=== PATIENT | male | born 1950 | race Caucasian/White ===

== ENCOUNTER 2018-01-24 11:14 | Inpatient (IN) | payer OTHER ==
[2018-01-24 12:40] LABS: ADD MAN DIFF? NO
[2018-01-24 12:45] LABS: WHITE BLOOD COUNT 8.6 10^3/ul (4.8-10.8)
[2018-01-24 12:45] LABS: BASOPHILS % 0.2 % (0.0-2.0); EOSINOPHILS # 0.3 10^3/ul (0.0-0.5); EOSINOPHILS % 3.8 % (0.0-7.0); HEMATOCRIT 28.4 % (42.0-52.0); HEMOGLOBIN 9.2 g/dl (14.0-18.0); LYMPHOCYTES % 11.1 % (15.0-51.0); MEAN CORPUSCULAR HEMOGLOBIN 30.2 pg (29.0-33.0); MEAN CORPUSCULAR HGB CONC 32.4 g/dl (32.0-37.0); MEAN CORPUSCULAR VOLUME 93.1 fl (82.0-101.0); MEAN PLATELET VOLUME 9.6 fl (7.4-10.4); MONOCYTE # 0.5 10^3/ul (0.3-0.9); MONOCYTES % 6.3 % (0.0-11.0); NEUTROPHIL # 6.7 10^3/ul (1.6-7.5); NEUTROPHILS % 77.8 % (39.0-77.0); PLATELET COUNT 431 10^3/UL (140-415); RED BLOOD COUNT 3.05 10^6/ul (4.70-6.10); RED CELL DISTRIBUTION WIDTH 12.1 % (11.5-14.5)
[2018-01-24 12:54] LABS: ADD UMIC YES; UR ASCORBIC ACID NEGATIVE (NEGATIVE); UR BILIRUBIN (Dip) NEGATIVE (NEGATIVE); UR BLOOD (Dip) 1+ mg/dL (NEGATIVE); UR CLARITY CLOUDY (CLEAR); UR COLOR YELLOW (YELLOW); UR GLUCOSE (Dip) 2+ mg/dL (NEGATIVE); UR KETONES (Dip) NEGATIVE (NEGATIVE); UR LEUKOCYTE ESTERASE (Dip) 3+ Leu/ul (NEGATIVE); UR NITRITE (Dip) NEGATIVE (NEGATIVE); UR RBC 29 /HPF (0-5); UR SPECIFIC GRAVITY (Dip) 1.014 (1.003-1.030); UR TOTAL PROTEIN (Dip) 3+ mg/dl (NEGATIVE); UR UROBILINOGEN (Dip) NEGATIVE (NEGATIVE); UR WBC > 182 /HPF (0-5)
[2018-01-24 13:03] LABS: ALANINE AMINOTRANSFERASE 18 IU/L (13-69); ALBUMIN 3.5 g/dl (3.3-4.9); ALBUMIN/GLOBULIN RATIO 0.79; ALKALINE PHOSPHATASE 245 IU/L (42-121); ANION GAP 14 (5-13); ASPARTATE AMINO TRANSFERASE 19 IU/L (15-46); BLOOD UREA NITROGEN 68 mg/dl (7-20); CALCIUM 8.9 mg/dl (8.4-10.2); CARBON DIOXIDE 16 mmol/L (21-31); CHLORIDE 109 mmol/L (97-110); CREATININE 6.01 mg/dl (0.61-1.24); Estimated GFR 9 mL/min (>60); GLUCOSE 125 mg/dl (70-220); LIPASE 706 U/L (23-300); POTASSIUM 5.3 mmol/L (3.5-5.1); SODIUM 139 mmol/L (135-144); TOTAL PROTEIN 7.9 g/dl (6.1-8.1)
[2018-01-24] MEDS ORDERED: NACL 0.9% 3 ML SYG IV (16:30)
[2018-01-24] MEDS ORDERED: VANCOMYCIN IV PER PHARMACY XX (16:30)
[2018-01-24] MEDS ORDERED: ALBUTEROL/IPRATROPIUM (NEB) 3 ML AMP HHN (17:00)
[2018-01-24] MEDS: HYDROCODONE/APAP (5/325) TAB PO (17:08)
[2018-01-24] MEDS: SOD CHLORIDE 0.9% 1,000 ML IV (18:59)
[2018-01-24] MEDS: AMLODIPINE 10 MG TAB PO (19:00)
[2018-01-24] MEDS: LABETALOL HCL 20MG INJ IV (19:00)
[2018-01-24] MEDS: ALBUTEROL/IPRATROPIUM (NEB) 3 ML AMP HHN (20:00)
[2018-01-24 20:42] LABS: CREATINE KINASE 39 IU/L (23-200)
[2018-01-24] MEDS: NA BICARBONATE 650 MG TAB PO (21:17)
[2018-01-24] MEDS: NA POLYST SULFON 15 GM/60 ML BTL PO (21:20)
[2018-01-24 21:45] LABS: SODIUM,URINE RANDOM 67 mmol/L (30-90)
[2018-01-24] MEDS: PIPER-TAZO 2.25 GM (PMX) 50 ML IVPB (22:16)
[2018-01-25] MEDS: PANTOPRAZOLE 40 MG INJ IV (05:05)
[2018-01-25] MEDS: SOD CHLORIDE 0.9% 1,000 ML IV (05:06)
[2018-01-25] MEDS: PIPER-TAZO 2.25 GM (PMX) 50 ML IVPB ×3 (05:07→21:38)
[2018-01-25 05:45] LABS: ADD MAN DIFF? NO
[2018-01-25 05:51] LABS: WHITE BLOOD COUNT 6.7 10^3/ul (4.8-10.8)
[2018-01-25 05:51] LABS: BASOPHILS % 0.3 % (0.0-2.0); EOSINOPHILS # 0.2 10^3/ul (0.0-0.5); EOSINOPHILS % 2.8 % (0.0-7.0); HEMATOCRIT 25.6 % (42.0-52.0); HEMOGLOBIN 8.4 g/dl (14.0-18.0); LYMPHOCYTES # 0.8 10^3/ul (0.8-2.9); MEAN CORPUSCULAR HEMOGLOBIN 30.9 pg (29.0-33.0); MEAN CORPUSCULAR HGB CONC 32.8 g/dl (32.0-37.0); MEAN CORPUSCULAR VOLUME 94.1 fl (82.0-101.0); MEAN PLATELET VOLUME 9.4 fl (7.4-10.4); MONOCYTE # 0.5 10^3/ul (0.3-0.9); MONOCYTES % 7.5 % (0.0-11.0); NEUTROPHIL # 5.1 10^3/ul (1.6-7.5); NEUTROPHILS % 76.7 % (39.0-77.0); PLATELET COUNT 387 10^3/UL (140-415); RED BLOOD COUNT 2.72 10^6/ul (4.70-6.10); RED CELL DISTRIBUTION WIDTH 12.5 % (11.5-14.5)
[2018-01-25 06:09] LABS: LIPASE 915 U/L (23-300)
[2018-01-25 06:27] LABS: ALANINE AMINOTRANSFERASE 25 IU/L (13-69); ALBUMIN 3.1 g/dl (3.3-4.9); ALBUMIN/GLOBULIN RATIO 0.81; ALKALINE PHOSPHATASE 208 IU/L (42-121); ANION GAP 12 (5-13); ASPARTATE AMINO TRANSFERASE 29 IU/L (15-46); BILIRUBIN,INDIRECT 0.1 mg/dl (0-1.1); BILIRUBIN,TOTAL 0.1 mg/dl (0.2-1.3); BLOOD UREA NITROGEN 66 mg/dl (7-20); CALCIUM 8.2 mg/dl (8.4-10.2); CARBON DIOXIDE 16 mmol/L (21-31); CHLORIDE 116 mmol/L (97-110); CREATININE 5.96 mg/dl (0.61-1.24); Estimated GFR 9 mL/min (>60); GLUCOSE 137 mg/dl (70-220); POTASSIUM 5.5 mmol/L (3.5-5.1); SODIUM 144 mmol/L (135-144); TOTAL PROTEIN 6.9 g/dl (6.1-8.1)
[2018-01-25 07:26] LABS: HEMOGLOBIN A1C 5.7 % (0-5.9)
[2018-01-25] MEDS: ALBUTEROL/IPRATROPIUM (NEB) 3 ML AMP HHN ×3 (08:00→20:00)
[2018-01-25] MEDS: NA BICARBONATE 650 MG TAB PO ×3 (09:24→21:36)
[2018-01-25] MEDS: SODIUM BICARBONATE (IV ADD) 100 MEQ in DEXTROSE 5% 1,000 ML IV (13:32)
[2018-01-25] MEDS: NA POLYST SULFON 15 GM/60 ML BTL PO ×2 (14:57→16:21)
[2018-01-26] MEDS: PANTOPRAZOLE 40 MG INJ IV (06:38)
[2018-01-26] MEDS: PIPER-TAZO 2.25 GM (PMX) 50 ML IVPB ×3 (06:38→22:45)
[2018-01-26 06:41] LABS: ADD MAN DIFF? NO
[2018-01-26 06:44] LABS: BASOPHILS % 0.5 % (0.0-2.0); EOSINOPHILS # 0.3 10^3/ul (0.0-0.5); EOSINOPHILS % 5.1 % (0.0-7.0); HEMATOCRIT 22.3 % (42.0-52.0); HEMOGLOBIN 7.1 g/dl (14.0-18.0); LYMPHOCYTES # 0.9 10^3/ul (0.8-2.9); LYMPHOCYTES % 13.5 % (15.0-51.0); MEAN CORPUSCULAR HGB CONC 31.8 g/dl (32.0-37.0); MEAN CORPUSCULAR VOLUME 94.1 fl (82.0-101.0); MEAN PLATELET VOLUME 9.9 fl (7.4-10.4); MONOCYTE # 0.7 10^3/ul (0.3-0.9); MONOCYTES % 9.8 % (0.0-11.0); NEUTROPHIL # 4.7 10^3/ul (1.6-7.5); NEUTROPHILS % 70.3 % (39.0-77.0); PLATELET COUNT 338 10^3/UL (140-415); RED BLOOD COUNT 2.37 10^6/ul (4.70-6.10); RED CELL DISTRIBUTION WIDTH 12.4 % (11.5-14.5)
[2018-01-26 06:44] LABS: WHITE BLOOD COUNT 6.6 10^3/ul (4.8-10.8)
[2018-01-26 07:12] LABS: ANION GAP 10 (5-13); BLOOD UREA NITROGEN 56 mg/dl (7-20); CALCIUM 8.2 mg/dl (8.4-10.2); CARBON DIOXIDE 18 mmol/L (21-31); CHLORIDE 116 mmol/L (97-110); Estimated GFR 10 mL/min (>60); GLUCOSE 137 mg/dl (70-220); MAGNESIUM 1.8 mg/dl (1.7-2.5); PHOSPHORUS 5.5 mg/dl (2.5-4.9); POTASSIUM 4.6 mmol/L (3.5-5.1); SODIUM 144 mmol/L (135-144)
[2018-01-26] MEDS: ALBUTEROL/IPRATROPIUM (NEB) 3 ML AMP HHN ×3 (08:00→19:59)
[2018-01-26] MEDS: SOD CHLORIDE 0.45% 1,000 ML IV (08:10)
[2018-01-26] MEDS: NA BICARBONATE 650 MG TAB PO ×3 (08:10→20:37)
[2018-01-26 10:55] LABS: RETICULOCYTE COUNT # 0.047 X10^6 (0.020-0.110)
[2018-01-26 10:55] LABS: RETICULOCYTE RBC 2.36
[2018-01-26 11:11] LABS: IRON 43 ug/dl (35-150)
[2018-01-26 11:12] LABS: HEMATOCRIT 21.5 % (42.0-52.0)
[2018-01-26 11:20] LABS: % IRON SATURATION 21 % SAT (22-52); TOTAL IRON BINDING CAPACITY 207 ug/dl (241-421)
[2018-01-26 11:23] LABS: HEMOGLOBIN 6.9 g/dl (14.0-18.0)
[2018-01-26 14:19] LABS: INR 1.22; PROTIME 15.6 Sec (11.9-14.9); PT RATIO 1.2
[2018-01-26 14:20] LABS: PARTIAL THROMBOPLASTIN TIME 38.3 Sec (23.0-35.0)
[2018-01-26 14:44] LABS: CREATINE KINASE 32 IU/L (23-200)
[2018-01-26] MEDS: EPOETIN 3000 UNITS/1 ML INJ (ESRD) SC (17:31)
[2018-01-26 19:46] LABS: IMMEDIATE SPIN CROSSMATCH 1 2
[2018-01-26 20:29] LABS: INR 1.22; PROTIME 15.6 Sec (11.9-14.9); PT RATIO 1.2
[2018-01-26 20:30] LABS: PARTIAL THROMBOPLASTIN TIME 38.6 Sec (23.0-35.0)
[2018-01-26] MEDS: LABETALOL HCL 20MG INJ IV (20:37)
[2018-01-27] MEDS: SOD CHLORIDE 0.45% 1,000 ML IV ×2 (00:10→16:46)
[2018-01-27] MEDS: PANTOPRAZOLE 40 MG INJ IV (05:44)
[2018-01-27] MEDS: PIPER-TAZO 2.25 GM (PMX) 50 ML IVPB ×3 (05:46→21:32)
[2018-01-27] MEDS: LABETALOL HCL 20MG INJ IV ×3 (05:53→19:55)
[2018-01-27 06:19] LABS: ADD MAN DIFF? NO
[2018-01-27 06:24] LABS: WHITE BLOOD COUNT 8.1 10^3/ul (4.8-10.8)
[2018-01-27 06:24] LABS: BASOPHILS % 0.2 % (0.0-2.0); EOSINOPHILS # 0.2 10^3/ul (0.0-0.5); HEMATOCRIT 28.3 % (42.0-52.0); HEMOGLOBIN 9.4 g/dl (14.0-18.0); LYMPHOCYTES # 1.1 10^3/ul (0.8-2.9); LYMPHOCYTES % 13.7 % (15.0-51.0); MEAN CORPUSCULAR HEMOGLOBIN 30.3 pg (29.0-33.0); MEAN CORPUSCULAR HGB CONC 33.2 g/dl (32.0-37.0); MEAN CORPUSCULAR VOLUME 91.3 fl (82.0-101.0); MEAN PLATELET VOLUME 9.9 fl (7.4-10.4); MONOCYTE # 0.6 10^3/ul (0.3-0.9); MONOCYTES % 7.8 % (0.0-11.0); NEUTROPHILS % 74.8 % (39.0-77.0); PLATELET COUNT 294 10^3/UL (140-415); RED CELL DISTRIBUTION WIDTH 13.3 % (11.5-14.5)
[2018-01-27 06:42] LABS: INR 1.21; PROTIME 15.5 Sec (11.9-14.9); PT RATIO 1.2
[2018-01-27 06:49] LABS: ANION GAP 12 (5-13); BLOOD UREA NITROGEN 49 mg/dl (7-20); CALCIUM 8.1 mg/dl (8.4-10.2); CARBON DIOXIDE 17 mmol/L (21-31); CHLORIDE 113 mmol/L (97-110); CREATININE 5.32 mg/dl (0.61-1.24); Estimated GFR 11 mL/min (>60); GLUCOSE 104 mg/dl (70-220); MAGNESIUM 1.6 mg/dl (1.7-2.5); PHOSPHORUS 5.9 mg/dl (2.5-4.9); POTASSIUM 4.3 mmol/L (3.5-5.1); SODIUM 142 mmol/L (135-144)
[2018-01-27] MEDS ORDERED: ROCURONIUM 50 MG INJ ×2 (07:00→17:37)
[2018-01-27 07:23] LABS: CARCINOEMBRYONIC ANTIGEN 2.5 ng/ml (0.0-5.0)
[2018-01-27 07:23] LABS: CANCER ANTIGEN 125 23.1 U/ml (0.0-35.0)
[2018-01-27 07:27] LABS: CANCER ANTIGEN 19-9 8.7 U/ml (0.0-37.0)
[2018-01-27 07:37] LABS: PROSTATE SPECIFIC ANTIGEN 1.4 ng/ml (0.0-4.0)
[2018-01-27] MEDS: NA BICARBONATE 650 MG TAB PO ×4 (08:45→21:32)
[2018-01-27] MEDS: ALBUTEROL/IPRATROPIUM (NEB) 3 ML AMP HHN ×3 (09:05→19:36)
[2018-01-27] MEDS: MAGNESIUM SULFATE 1 GM/D5W 100 ML IVPB (10:03)
[2018-01-27] MEDS: LIDOCAINE 1% (MPF) 5 ML VIAL ×2 (11:03)
[2018-01-27 11:21] LABS: OCCULT BLOOD STOOL NEGATIVE (NEGATIVE)
[2018-01-27] MEDS: CALCIUM ACETATE 667 MG CAP PO ×2 (13:37→17:14)
[2018-01-27] MEDS ORDERED: PHENYLephrine (100 MCG/ML) 5ML SYG (17:37)
[2018-01-27] MEDS ORDERED: CEFAZOLIN 1 GM INJ (17:37)
[2018-01-27] MEDS ORDERED: MIDAZOLAM 1 MG/ML 2 ML INJ (17:37)
[2018-01-27] MEDS ORDERED: FENTAnyl 50 MCG/ML VIAL (17:37)
[2018-01-27] MEDS ORDERED: PROPOFOL 20 ML (17:37)
[2018-01-27] MEDS ORDERED: FENTAnyl 50 MCG/ML VIAL IV ×3 (18:00)
[2018-01-27] MEDS ORDERED: ONDANSETRON 4 MG INJ IV (18:00)
[2018-01-27] MEDS ORDERED: DIPHENHYDRAMINE 50 MG INJ IV (18:00)
[2018-01-27] MEDS ORDERED: MEPERIDINE 25 MG INJ IV (18:00)
[2018-01-27] MEDS ORDERED: METOCLOPRAMIDE 10 MG INJ IV (18:00)
[2018-01-27] MEDS ORDERED: EPHEDrine SULFATE 50 MG/5 ML SYG IV (18:00)
[2018-01-27] MEDS ORDERED: HYDROmorphONE 1 MG/5 ML IV SYRINGE IV ×3 (18:00)
[2018-01-27] MEDS: IOHEXOL 300MG/ML 30 ML BTL (18:34)
[2018-01-27 18:58] LABS: ADD UMIC YES; UR ASCORBIC ACID NEGATIVE (NEGATIVE); UR BACTERIA FEW /HPF (NONE SEEN); UR BILIRUBIN (Dip) NEGATIVE (NEGATIVE); UR BLOOD (Dip) 2+ mg/dL (NEGATIVE); UR CLARITY CLEAR (CLEAR); UR COLOR COLORLESS (YELLOW); UR GLUCOSE (Dip) NEGATIVE (NEGATIVE); UR KETONES (Dip) NEGATIVE (NEGATIVE); UR LEUKOCYTE ESTERASE (Dip) 2+ Leu/ul (NEGATIVE); UR NITRITE (Dip) NEGATIVE (NEGATIVE); UR RBC 33 /HPF (0-5); UR SPECIFIC GRAVITY (Dip) 1.004 (1.003-1.030); UR TOTAL PROTEIN (Dip) NEGATIVE (NEGATIVE); UR UROBILINOGEN (Dip) NEGATIVE (NEGATIVE); UR WBC 74 /HPF (0-5)
[2018-01-27] MEDS ORDERED: DEXAMETHASONE 4 MG/ML 1 ML INJ (19:09)
[2018-01-27] MEDS ORDERED: ONDANSETRON 4 MG INJ (19:09)
[2018-01-27] MEDS ORDERED: METOCLOPRAMIDE 10 MG INJ (19:09)
[2018-01-27] MEDS ORDERED: SUGAMMADEX SODIUM 200 MG/2 ML VIAL IV (19:22)
[2018-01-27] MEDS: hydrALAzine 20 MG INJ IV (20:28)
[2018-01-27] MEDS: HYDROCODONE/APAP (5/325) TAB PO (21:33)
[2018-01-28] MEDS: PIPER-TAZO 2.25 GM (PMX) 50 ML IVPB ×3 (05:21→21:11)
[2018-01-28] MEDS: PANTOPRAZOLE 40 MG INJ IV (05:21)
[2018-01-28 05:31] LABS: ADD MAN DIFF? NO
[2018-01-28 05:34] LABS: WHITE BLOOD COUNT 6.8 10^3/ul (4.8-10.8)
[2018-01-28 05:34] LABS: ABNORMAL IP MESSAGE 1; BASOPHILS % 0.1 % (0.0-2.0); HEMATOCRIT 30.1 % (42.0-52.0); HEMOGLOBIN 9.9 g/dl (14.0-18.0); LYMPHOCYTES # 0.4 10^3/ul (0.8-2.9); LYMPHOCYTES % 5.3 % (15.0-51.0); MEAN CORPUSCULAR HEMOGLOBIN 30.3 pg (29.0-33.0); MEAN CORPUSCULAR HGB CONC 32.9 g/dl (32.0-37.0); MEAN PLATELET VOLUME 9.8 fl (7.4-10.4); MONOCYTE # 0.1 10^3/ul (0.3-0.9); MONOCYTES % 0.9 % (0.0-11.0); NEUTROPHIL # 6.3 10^3/ul (1.6-7.5); NEUTROPHILS % 93.1 % (39.0-77.0); PLATELET COUNT 274 10^3/UL (140-415); POSITIVE DIFF @See below; RED BLOOD COUNT 3.27 10^6/ul (4.70-6.10); RED CELL DISTRIBUTION WIDTH 13.3 % (11.5-14.5)
[2018-01-28 06:26] LABS: ALANINE AMINOTRANSFERASE 11 IU/L (13-69); ALBUMIN 2.8 g/dl (3.3-4.9); ALBUMIN/GLOBULIN RATIO 0.75; ALKALINE PHOSPHATASE 150 IU/L (42-121); ANION GAP 12 (5-13); ASPARTATE AMINO TRANSFERASE 16 IU/L (15-46); BILIRUBIN,INDIRECT 0.2 mg/dl (0-1.1); BILIRUBIN,TOTAL 0.2 mg/dl (0.2-1.3); BLOOD UREA NITROGEN 47 mg/dl (7-20); CALCIUM 8.1 mg/dl (8.4-10.2); CARBON DIOXIDE 16 mmol/L (21-31); CHLORIDE 114 mmol/L (97-110); CREATININE 5.11 mg/dl (0.61-1.24); Estimated GFR 11 mL/min (>60); GLUCOSE 177 mg/dl (70-220); POTASSIUM 4.6 mmol/L (3.5-5.1); SODIUM 142 mmol/L (135-144); TOTAL PROTEIN 6.5 g/dl (6.1-8.1)
[2018-01-28 06:46] LABS: COMPLEMENT C3 83 mg/dl (88-165); COMPLEMENT C4 35 mg/dl (14-44)
[2018-01-28 07:10] LABS: HIV 1&2 ANTIBODY NEGATIVE (NEGATIVE)
[2018-01-28] MEDS: ALBUTEROL/IPRATROPIUM (NEB) 3 ML AMP HHN ×3 (07:52→19:38)
[2018-01-28 08:36] LABS: MAGNESIUM 1.8 mg/dl (1.7-2.5)
[2018-01-28] MEDS: CALCIUM ACETATE 667 MG CAP PO ×3 (09:28→18:35)
[2018-01-28] MEDS: NA BICARBONATE 650 MG TAB PO ×3 (09:28→20:29)
[2018-01-28] MEDS: LABETALOL HCL 20MG INJ IV ×2 (12:01→20:28)
[2018-01-28 15:14] LABS: RAPID PLASMA REAGIN NONREACTIVE (NR)
[2018-01-28] MEDS: SODIUM BICARBONATE (IV ADD) 75 MEQ in DEXTROSE 5% 1,000 ML IV (15:30)
[2018-01-28] MEDS: EPOETIN 3000 UNITS/1 ML INJ (ESRD) SC (21:12)
[2018-01-29 00:22] LABS: CANCER ANTIGEN 15-3 11 U/mL (<32)
[2018-01-29] MEDS: PIPER-TAZO 2.25 GM (PMX) 50 ML IVPB ×3 (05:07→22:39)
[2018-01-29] MEDS: PANTOPRAZOLE 40 MG INJ IV (05:07)
[2018-01-29 06:08] LABS: ADD MAN DIFF? NO
[2018-01-29 06:16] LABS: WHITE BLOOD COUNT 8.7 10^3/ul (4.8-10.8)
[2018-01-29 06:16] LABS: BASOPHILS % 0.2 % (0.0-2.0); EOSINOPHILS # 0.1 10^3/ul (0.0-0.5); EOSINOPHILS % 1.6 % (0.0-7.0); HEMATOCRIT 25.6 % (42.0-52.0); HEMOGLOBIN 8.6 g/dl (14.0-18.0); LYMPHOCYTES # 1.1 10^3/ul (0.8-2.9); LYMPHOCYTES % 12.7 % (15.0-51.0); MEAN CORPUSCULAR HEMOGLOBIN 30.8 pg (29.0-33.0); MEAN CORPUSCULAR HGB CONC 33.6 g/dl (32.0-37.0); MEAN CORPUSCULAR VOLUME 91.8 fl (82.0-101.0); MEAN PLATELET VOLUME 9.9 fl (7.4-10.4); MONOCYTE # 0.7 10^3/ul (0.3-0.9); MONOCYTES % 7.9 % (0.0-11.0); NEUTROPHIL # 6.7 10^3/ul (1.6-7.5); NEUTROPHILS % 77.1 % (39.0-77.0); PLATELET COUNT 238 10^3/UL (140-415); RED BLOOD COUNT 2.79 10^6/ul (4.70-6.10); RED CELL DISTRIBUTION WIDTH 13.2 % (11.5-14.5)
[2018-01-29 07:18] LABS: ANION GAP 11 (5-13); BLOOD UREA NITROGEN 52 mg/dl (7-20); CALCIUM 7.7 mg/dl (8.4-10.2); CARBON DIOXIDE 18 mmol/L (21-31); CHLORIDE 112 mmol/L (97-110); CREATININE 5.36 mg/dl (0.61-1.24); Estimated GFR 11 mL/min (>60); GLUCOSE 141 mg/dl (70-220); MAGNESIUM 1.8 mg/dl (1.7-2.5); PHOSPHORUS 6.2 mg/dl (2.5-4.9); POTASSIUM 3.9 mmol/L (3.5-5.1); SODIUM 141 mmol/L (135-144)
[2018-01-29] MEDS: ALBUTEROL/IPRATROPIUM (NEB) 3 ML AMP HHN ×3 (08:14→20:25)
[2018-01-29] MEDS: CALCIUM ACETATE 667 MG CAP PO ×3 (08:41→17:41)
[2018-01-29] MEDS: NA BICARBONATE 650 MG TAB PO ×3 (08:42→20:22)
[2018-01-29] MEDS: NIFEdipine (XL) 60 MG TAB PO (13:02)
[2018-01-29] MEDS: hydrALAzine 20 MG INJ IV ×2 (13:03→20:23)
[2018-01-29 13:06] LABS: ANA SCREEN NEGATIVE (NEGATIVE)
[2018-01-29 13:57] LABS: ANCA SCREEN NEGATIVE (NEGATIVE)
[2018-01-29 15:26] LABS: MYELOPEROXIDASE ANTIBODY <1.0 AI; PROTEINASE-3 ANTIBODY <1.0 AI
[2018-01-29] MEDS: SODIUM BICARBONATE (IV ADD) 75 MEQ in DEXTROSE 5% 1,000 ML IV (15:30)
[2018-01-29 17:02] LABS: LACTATE DEHYDROGENASE 346 IU/L (313-618)
[2018-01-29] MEDS ORDERED: SOD CHLORIDE 0.45% 1,000 ML IV (17:30)
[2018-01-29 18:54] LABS: IMMUNOGLOBULIN A 493 mg/dl (70-400); IMMUNOGLOBULIN G 1346 mg/dl (700-1600); IMMUNOGLOBULIN M 50 mg/dl (40-230)
[2018-01-29] MEDS: SOD CHLORIDE 0.45% 1,000 ML IV (22:39)
[2018-01-29 22:55] LABS: CREATININE,URINE RANDOM 66.23 mg/dl (20-370)
[2018-01-29 23:01] LABS: PROTEIN/CREAT RATIO 6.35 RATIO
[2018-01-30] MEDS: PANTOPRAZOLE 40 MG INJ IV (05:18)
[2018-01-30] MEDS: PIPER-TAZO 2.25 GM (PMX) 50 ML IVPB ×3 (05:18→20:37)
[2018-01-30 06:19] LABS: ADD MAN DIFF? NO
[2018-01-30 06:30] LABS: WHITE BLOOD COUNT 7.9 10^3/ul (4.8-10.8)
[2018-01-30 06:30] LABS: BASOPHILS % 0.1 % (0.0-2.0); EOSINOPHILS # 0.1 10^3/ul (0.0-0.5); EOSINOPHILS % 1.3 % (0.0-7.0); HEMOGLOBIN 9.2 g/dl (14.0-18.0); LYMPHOCYTES # 0.7 10^3/ul (0.8-2.9); LYMPHOCYTES % 8.3 % (15.0-51.0); MEAN CORPUSCULAR HEMOGLOBIN 30.4 pg (29.0-33.0); MEAN CORPUSCULAR HGB CONC 32.9 g/dl (32.0-37.0); MEAN CORPUSCULAR VOLUME 92.4 fl (82.0-101.0); MEAN PLATELET VOLUME 10.1 fl (7.4-10.4); MONOCYTE # 0.6 10^3/ul (0.3-0.9); MONOCYTES % 7.4 % (0.0-11.0); NEUTROPHIL # 6.5 10^3/ul (1.6-7.5); NEUTROPHILS % 81.8 % (39.0-77.0); PLATELET COUNT 225 10^3/UL (140-415); RED BLOOD COUNT 3.03 10^6/ul (4.70-6.10); RED CELL DISTRIBUTION WIDTH 13.1 % (11.5-14.5)
[2018-01-30 06:50] LABS: ANION GAP 12 (5-13); BLOOD UREA NITROGEN 51 mg/dl (7-20); CALCIUM 8.1 mg/dl (8.4-10.2); CARBON DIOXIDE 20 mmol/L (21-31); CHLORIDE 106 mmol/L (97-110); CREATININE 6.43 mg/dl (0.61-1.24); Estimated GFR 9 mL/min (>60); GLUCOSE 135 mg/dl (70-220); MAGNESIUM 1.7 mg/dl (1.7-2.5); PHOSPHORUS 5.3 mg/dl (2.5-4.9); POTASSIUM 3.9 mmol/L (3.5-5.1); SODIUM 138 mmol/L (135-144)
[2018-01-30] MEDS: ALBUTEROL/IPRATROPIUM (NEB) 3 ML AMP HHN ×3 (07:58→19:31)
[2018-01-30] MEDS: NA BICARBONATE 650 MG TAB PO ×3 (08:58→20:36)
[2018-01-30] MEDS: NIFEdipine (XL) 60 MG TAB PO (08:59)
[2018-01-30] MEDS: CALCIUM ACETATE 667 MG CAP PO ×3 (08:59→17:26)
[2018-01-30] MEDS: SOD CHLORIDE 0.45% 1,000 ML IV (17:26)
[2018-01-30] MEDS: ONDANSETRON 4 MG INJ IV (18:20)
[2018-01-31] MEDS: PANTOPRAZOLE 40 MG INJ IV (05:07)
[2018-01-31] MEDS: PIPER-TAZO 2.25 GM (PMX) 50 ML IVPB ×3 (05:07→21:36)
[2018-01-31 05:39] LABS: ADD MAN DIFF? NO
[2018-01-31 05:46] LABS: WHITE BLOOD COUNT 6.5 10^3/ul (4.8-10.8)
[2018-01-31 05:46] LABS: BASOPHILS % 0.2 % (0.0-2.0); EOSINOPHILS # 0.1 10^3/ul (0.0-0.5); EOSINOPHILS % 0.8 % (0.0-7.0); HEMATOCRIT 27.1 % (42.0-52.0); LYMPHOCYTES # 0.8 10^3/ul (0.8-2.9); LYMPHOCYTES % 12.2 % (15.0-51.0); MEAN CORPUSCULAR HEMOGLOBIN 30.4 pg (29.0-33.0); MEAN CORPUSCULAR HGB CONC 33.2 g/dl (32.0-37.0); MEAN CORPUSCULAR VOLUME 91.6 fl (82.0-101.0); MEAN PLATELET VOLUME 10.2 fl (7.4-10.4); MONOCYTE # 0.5 10^3/ul (0.3-0.9); MONOCYTES % 7.9 % (0.0-11.0); NEUTROPHILS % 77.8 % (39.0-77.0); PLATELET COUNT 189 10^3/UL (140-415); RED BLOOD COUNT 2.96 10^6/ul (4.70-6.10); RED CELL DISTRIBUTION WIDTH 13.1 % (11.5-14.5)
[2018-01-31 06:14] LABS: ANION GAP 13 (5-13); BLOOD UREA NITROGEN 55 mg/dl (7-20); CALCIUM 8.1 mg/dl (8.4-10.2); CARBON DIOXIDE 19 mmol/L (21-31); CHLORIDE 106 mmol/L (97-110); Estimated GFR 8 mL/min (>60); GLUCOSE 105 mg/dl (70-220); MAGNESIUM 1.7 mg/dl (1.7-2.5); PHOSPHORUS 5.7 mg/dl (2.5-4.9); SODIUM 138 mmol/L (135-144)
[2018-01-31] MEDS: SOD CHLORIDE 0.45% 1,000 ML IV (06:17)
[2018-01-31] MEDS: ALBUTEROL/IPRATROPIUM (NEB) 3 ML AMP HHN ×3 (07:24→19:30)
[2018-01-31] MEDS: NA BICARBONATE 650 MG TAB PO ×3 (08:29→21:34)
[2018-01-31] MEDS: CALCIUM ACETATE 667 MG CAP PO ×3 (08:30→17:18)
[2018-01-31] MEDS: NIFEdipine (XL) 60 MG TAB PO (08:30)
[2018-01-31 11:41] LABS: PROTEIN, TOTAL 5.9 g/dL (6.1-8.1)
[2018-01-31] MEDS: EPOETIN 3000 UNITS/1 ML INJ (ESRD) SC (17:19)
[2018-02-01] MEDS: PANTOPRAZOLE (EC) 40 MG TAB PO (05:24)
[2018-02-01] MEDS: PIPER-TAZO 2.25 GM (PMX) 50 ML IVPB ×3 (05:25→21:43)
[2018-02-01 06:32] LABS: ALBUMIN 2.7 g/dl (3.3-4.9); ANION GAP 13 (5-13); BLOOD UREA NITROGEN 58 mg/dl (7-20); CALCIUM 8.1 mg/dl (8.4-10.2); CARBON DIOXIDE 20 mmol/L (21-31); CHLORIDE 106 mmol/L (97-110); CREATININE 6.82 mg/dl (0.61-1.24); GLUCOSE 144 mg/dl (70-220); PHOSPHORUS 5.5 mg/dl (2.5-4.9); POTASSIUM 4.2 mmol/L (3.5-5.1); SODIUM 139 mmol/L (135-144)
[2018-02-01] MEDS: NA BICARBONATE 650 MG TAB PO ×3 (09:08→21:43)
[2018-02-01] MEDS: NIFEdipine (XL) 60 MG TAB PO (09:08)
[2018-02-01] MEDS: CALCIUM ACETATE 667 MG CAP PO ×3 (09:08→18:10)
[2018-02-01] MEDS: ALBUTEROL/IPRATROPIUM (NEB) 3 ML AMP HHN ×3 (09:32→19:49)
[2018-02-01] MEDS: morphine 2 MG INJ IV (14:40)
[2018-02-01] MEDS: HYDROCODONE/APAP (5/325) TAB PO (14:40)
[2018-02-01 22:59] LABS: SITE Left Upper Forearm; TIME 2240
[2018-02-01 23:07] LABS: ALBUMIN 2.4 g/dL (3.8-4.8); ALPHA-1-GLOBULINS 0.4 g/dL (0.2-0.3); ALPHA-2-GLOBULINS 0.8 g/dL (0.5-0.9); BETA 2 GLOBULINS 0.4 g/dL (0.2-0.5); BETA GLOBULINS 0.4 g/dL (0.4-0.6); GAMMA GLOBULINS 1.5 g/dL (0.8-1.7)
[2018-02-02] MEDS ORDERED: ACETAMINOPHEN 325 MG TAB (05:20)
[2018-02-02] MEDS: ACETAMINOPHEN 325 MG TAB PO (05:36)
[2018-02-02 06:35] LABS: ALBUMIN 3.2 g/dl (3.3-4.9); ANION GAP 13 (5-13); BLOOD UREA NITROGEN 53 mg/dl (7-20); CALCIUM 8.6 mg/dl (8.4-10.2); CARBON DIOXIDE 21 mmol/L (21-31); CHLORIDE 106 mmol/L (97-110); CREATININE 6.92 mg/dl (0.61-1.24); GLUCOSE 112 mg/dl (70-220); POTASSIUM 4.4 mmol/L (3.5-5.1); SODIUM 140 mmol/L (135-144)
[2018-02-02] MEDS: PANTOPRAZOLE (EC) 40 MG TAB PO (07:46)
[2018-02-02] MEDS: PIPER-TAZO 2.25 GM (PMX) 50 ML IVPB ×3 (07:46→21:03)
[2018-02-02] MEDS: ALBUTEROL/IPRATROPIUM (NEB) 3 ML AMP HHN ×3 (07:59→19:53)
[2018-02-02] MEDS: NIFEdipine (XL) 60 MG TAB PO (09:50)
[2018-02-02] MEDS: CALCIUM ACETATE 667 MG CAP PO ×3 (09:50→17:00)
[2018-02-02] MEDS: NA BICARBONATE 650 MG TAB PO ×3 (09:50→21:03)
[2018-02-02 11:30] LABS: HAAIG REFLEX REFLEX FILED
[2018-02-02 12:38] LABS: HEPATITIS B SURFACE ANTIGEN NEGATIVE (NEGATIVE)
[2018-02-02 12:56] LABS: HEPATITIS B CORE ANTIBODY NEGATIVE (NEGATIVE); HEPATITIS C VIRAL ANTIBODY NEGATIVE (NEGATIVE)
[2018-02-02] MEDS: POLYETHYLENE GLYCOL 17 GM PACKET GTB (16:15)
[2018-02-02] MEDS: EPOETIN 3000 UNITS/1 ML INJ (ESRD) SC (16:16)
[2018-02-02] MEDS: FUROSEMIDE 40 MG INJ IV (17:34)
[2018-02-03] MEDS: ACETAMINOPHEN 325 MG TAB PO (03:47)
[2018-02-03] MEDS: PANTOPRAZOLE (EC) 40 MG TAB PO (05:48)
[2018-02-03] MEDS: PIPER-TAZO 2.25 GM (PMX) 50 ML IVPB ×3 (05:48→21:38)
[2018-02-03 06:20] LABS: ALBUMIN 2.9 g/dl (3.3-4.9); ANION GAP 15 (5-13); BLOOD UREA NITROGEN 60 mg/dl (7-20); CALCIUM 8.2 mg/dl (8.4-10.2); CARBON DIOXIDE 20 mmol/L (21-31); CHLORIDE 104 mmol/L (97-110); GLUCOSE 98 mg/dl (70-220); PHOSPHORUS 5.6 mg/dl (2.5-4.9); POTASSIUM 4.7 mmol/L (3.5-5.1); SODIUM 139 mmol/L (135-144)
[2018-02-03] MEDS: NA BICARBONATE 650 MG TAB PO ×3 (07:57→21:38)
[2018-02-03] MEDS: FUROSEMIDE 40 MG INJ IV (07:57)
[2018-02-03] MEDS: POLYETHYLENE GLYCOL 17 GM PACKET GTB (07:57)
[2018-02-03] MEDS: NIFEdipine (XL) 60 MG TAB PO (07:57)
[2018-02-03] MEDS: CALCIUM ACETATE 667 MG CAP PO ×3 (07:57→16:58)
[2018-02-03] MEDS: ALBUTEROL/IPRATROPIUM (NEB) 3 ML AMP HHN ×3 (08:07→19:21)
[2018-02-04 05:42] LABS: ADD MAN DIFF? NO
[2018-02-04 05:57] LABS: BASOPHILS % 0.3 % (0.0-2.0); EOSINOPHILS # 0.2 10^3/ul (0.0-0.5); HEMATOCRIT 24.9 % (42.0-52.0); HEMOGLOBIN 8.2 g/dl (14.0-18.0); LYMPHOCYTES # 0.6 10^3/ul (0.8-2.9); LYMPHOCYTES % 10.1 % (15.0-51.0); MEAN CORPUSCULAR HGB CONC 32.9 g/dl (32.0-37.0); MEAN CORPUSCULAR VOLUME 91.2 fl (82.0-101.0); MEAN PLATELET VOLUME 11.4 fl (7.4-10.4); MONOCYTE # 0.7 10^3/ul (0.3-0.9); MONOCYTES % 10.8 % (0.0-11.0); NEUTROPHIL # 4.7 10^3/ul (1.6-7.5); PLATELET COUNT 161 10^3/UL (140-415); RED BLOOD COUNT 2.73 10^6/ul (4.70-6.10); RED CELL DISTRIBUTION WIDTH 13.1 % (11.5-14.5)
[2018-02-04 05:57] LABS: WHITE BLOOD COUNT 6.3 10^3/ul (4.8-10.8)
[2018-02-04] MEDS: PANTOPRAZOLE (EC) 40 MG TAB PO (05:57)
[2018-02-04 06:06] LABS: PROTIME 16.4 Sec (11.9-14.9); PT RATIO 1.3
[2018-02-04] MEDS: PIPER-TAZO 2.25 GM (PMX) 50 ML IVPB ×3 (06:12→21:23)
[2018-02-04 06:30] LABS: ALBUMIN 2.8 g/dl (3.3-4.9); ANION GAP 12 (5-13); BLOOD UREA NITROGEN 66 mg/dl (7-20); CALCIUM 8.2 mg/dl (8.4-10.2); CARBON DIOXIDE 25 mmol/L (21-31); CHLORIDE 102 mmol/L (97-110); CREATININE 7.27 mg/dl (0.61-1.24); GLUCOSE 123 mg/dl (70-220); PHOSPHORUS 6.2 mg/dl (2.5-4.9); POTASSIUM 4.2 mmol/L (3.5-5.1); SODIUM 139 mmol/L (135-144)
[2018-02-04] MEDS: CALCIUM ACETATE 667 MG CAP PO ×3 (08:00→17:53)
[2018-02-04] MEDS: ALBUTEROL/IPRATROPIUM (NEB) 3 ML AMP HHN ×3 (08:14→19:13)
[2018-02-04] MEDS: NIFEdipine (XL) 60 MG TAB PO (09:00)
[2018-02-04] MEDS: FUROSEMIDE 40 MG INJ IV (09:00)
[2018-02-04] MEDS: NA BICARBONATE 650 MG TAB PO ×2 (09:00→13:19)
[2018-02-04] MEDS ORDERED: HEPARIN 1000 UNITS/ML 10 ML INJ (10:44)
[2018-02-04] MEDS ORDERED: LIDOCAINE 2% (MDV) 20 ML INJ (10:44)
[2018-02-04] MEDS ORDERED: FENTAnyl 50 MCG/ML VIAL (10:45)
[2018-02-04] MEDS ORDERED: MIDAZOLAM 1 MG/ML 2 ML INJ (10:45)
[2018-02-04] MEDS: EPOETIN 3000 UNITS/1 ML INJ (ESRD) SC (17:53)
[2018-02-04 21:19] LABS: SEVENTY TWO HOUR READING 14 mm (0-9)
[2018-02-05] MEDS: HEPARIN 1000 UNITS/ML 10 ML INJ CATHETER (01:31)
[2018-02-05] MEDS: LABETALOL HCL 20MG INJ IV (02:52)
[2018-02-05] MEDS: PANTOPRAZOLE (EC) 40 MG TAB PO (05:06)
[2018-02-05 05:58] LABS: ADD MAN DIFF? NO
[2018-02-05 06:03] LABS: WHITE BLOOD COUNT 6.3 10^3/ul (4.8-10.8)
[2018-02-05 06:03] LABS: BASOPHILS % 0.5 % (0.0-2.0); EOSINOPHILS # 0.2 10^3/ul (0.0-0.5); EOSINOPHILS % 2.4 % (0.0-7.0); HEMATOCRIT 29.7 % (42.0-52.0); HEMOGLOBIN 9.4 g/dl (14.0-18.0); LYMPHOCYTES # 0.7 10^3/ul (0.8-2.9); LYMPHOCYTES % 10.4 % (15.0-51.0); MEAN CORPUSCULAR HEMOGLOBIN 29.2 pg (29.0-33.0); MEAN CORPUSCULAR HGB CONC 31.6 g/dl (32.0-37.0); MEAN CORPUSCULAR VOLUME 92.2 fl (82.0-101.0); MEAN PLATELET VOLUME 10.8 fl (7.4-10.4); MONOCYTE # 0.6 10^3/ul (0.3-0.9); MONOCYTES % 9.7 % (0.0-11.0); NEUTROPHIL # 4.8 10^3/ul (1.6-7.5); NEUTROPHILS % 76.2 % (39.0-77.0); PLATELET COUNT 180 10^3/UL (140-415); RED BLOOD COUNT 3.22 10^6/ul (4.70-6.10)
[2018-02-05 06:26] LABS: MAGNESIUM 1.9 mg/dl (1.7-2.5)
[2018-02-05 06:28] LABS: ALBUMIN 2.7 g/dl (3.3-4.9); ANION GAP 13 (5-13); BLOOD UREA NITROGEN 43 mg/dl (7-20); CALCIUM 8.7 mg/dl (8.4-10.2); CARBON DIOXIDE 24 mmol/L (21-31); CHLORIDE 103 mmol/L (97-110); CREATININE 5.19 mg/dl (0.61-1.24); GLUCOSE 98 mg/dl (70-220); PHOSPHORUS 4.7 mg/dl (2.5-4.9); POTASSIUM 4.3 mmol/L (3.5-5.1); SODIUM 140 mmol/L (135-144)
[2018-02-05] MEDS: ALBUTEROL/IPRATROPIUM (NEB) 3 ML AMP HHN ×3 (08:07→19:40)
[2018-02-05] MEDS: FUROSEMIDE 40 MG INJ IV (08:59)
[2018-02-05] MEDS: NIFEdipine (XL) 60 MG TAB PO (08:59)
[2018-02-05] MEDS: CALCIUM ACETATE 667 MG CAP PO ×3 (08:59→17:44)
[2018-02-06] MEDS: OXYMETAZOLINE 0.05% 15 ML NAS SPRAY NASAL (03:55)
[2018-02-06 05:47] LABS: ADD MAN DIFF? NO
[2018-02-06 05:53] LABS: WHITE BLOOD COUNT 7.6 10^3/ul (4.8-10.8)
[2018-02-06 05:53] LABS: BASOPHILS % 0.3 % (0.0-2.0); EOSINOPHILS # 0.1 10^3/ul (0.0-0.5); EOSINOPHILS % 1.6 % (0.0-7.0); HEMATOCRIT 27.7 % (42.0-52.0); HEMOGLOBIN 8.9 g/dl (14.0-18.0); LYMPHOCYTES # 0.6 10^3/ul (0.8-2.9); LYMPHOCYTES % 8.5 % (15.0-51.0); MEAN CORPUSCULAR HEMOGLOBIN 29.7 pg (29.0-33.0); MEAN CORPUSCULAR HGB CONC 32.1 g/dl (32.0-37.0); MEAN CORPUSCULAR VOLUME 92.3 fl (82.0-101.0); MEAN PLATELET VOLUME 10.6 fl (7.4-10.4); MONOCYTE # 0.6 10^3/ul (0.3-0.9); MONOCYTES % 8.5 % (0.0-11.0); NEUTROPHIL # 6.1 10^3/ul (1.6-7.5); PLATELET COUNT 189 10^3/UL (140-415)
[2018-02-06 06:09] LABS: ALBUMIN 3.1 g/dl (3.3-4.9); ANION GAP 10 (5-13); BLOOD UREA NITROGEN 49 mg/dl (7-20); CALCIUM 8.7 mg/dl (8.4-10.2); CARBON DIOXIDE 27 mmol/L (21-31); CHLORIDE 100 mmol/L (97-110); CREATININE 5.81 mg/dl (0.61-1.24); GLUCOSE 148 mg/dl (70-220); MAGNESIUM 1.9 mg/dl (1.7-2.5); PHOSPHORUS 3.5 mg/dl (2.5-4.9); POTASSIUM 3.9 mmol/L (3.5-5.1); SODIUM 137 mmol/L (135-144)
[2018-02-06] MEDS ORDERED: VITAMIN A & D 5 GM OINT PACKET TOP (06:13)
[2018-02-06] MEDS: PANTOPRAZOLE (EC) 40 MG TAB PO (07:13)
[2018-02-06] MEDS: CALCIUM ACETATE 667 MG CAP PO ×3 (08:28→17:46)
[2018-02-06] MEDS: NIFEdipine (XL) 60 MG TAB PO (08:28)
[2018-02-06] MEDS: FUROSEMIDE 40 MG INJ IV (08:28)
[2018-02-06] MEDS: ALBUTEROL/IPRATROPIUM (NEB) 3 ML AMP HHN ×3 (09:12→19:38)
[2018-02-06] MEDS ORDERED: OXYMETAZOLINE 0.05% 15 ML NAS SPRAY NASAL (13:00)
[2018-02-06] MEDS ORDERED: SALINE 0.65% 45 ML NAS SPRAY NASAL (13:00)
[2018-02-07 05:44] LABS: ADD MAN DIFF? NO
[2018-02-07 05:46] LABS: WHITE BLOOD COUNT 5.8 10^3/ul (4.8-10.8)
[2018-02-07 05:46] LABS: BASOPHILS % 0.3 % (0.0-2.0); EOSINOPHILS # 0.1 10^3/ul (0.0-0.5); EOSINOPHILS % 2.4 % (0.0-7.0); HEMATOCRIT 22.7 % (42.0-52.0); HEMOGLOBIN 7.4 g/dl (14.0-18.0); LYMPHOCYTES # 0.9 10^3/ul (0.8-2.9); LYMPHOCYTES % 15.7 % (15.0-51.0); MEAN CORPUSCULAR HEMOGLOBIN 29.5 pg (29.0-33.0); MEAN CORPUSCULAR HGB CONC 32.6 g/dl (32.0-37.0); MEAN CORPUSCULAR VOLUME 90.4 fl (82.0-101.0); MEAN PLATELET VOLUME 10.8 fl (7.4-10.4); MONOCYTE # 0.6 10^3/ul (0.3-0.9); MONOCYTES % 10.9 % (0.0-11.0); NEUTROPHILS % 69.7 % (39.0-77.0); PLATELET COUNT 164 10^3/UL (140-415); RED BLOOD COUNT 2.51 10^6/ul (4.70-6.10); RED CELL DISTRIBUTION WIDTH 13.1 % (11.5-14.5)
[2018-02-07] MEDS: PANTOPRAZOLE (EC) 40 MG TAB PO (06:08)
[2018-02-07 06:27] LABS: ALBUMIN 2.7 g/dl (3.3-4.9); ANION GAP 7 (5-13); BLOOD UREA NITROGEN 51 mg/dl (7-20); CALCIUM 8.2 mg/dl (8.4-10.2); CARBON DIOXIDE 28 mmol/L (21-31); CHLORIDE 104 mmol/L (97-110); CREATININE 5.82 mg/dl (0.61-1.24); GLUCOSE 156 mg/dl (70-220); MAGNESIUM 1.9 mg/dl (1.7-2.5); PHOSPHORUS 3.8 mg/dl (2.5-4.9); POTASSIUM 3.6 mmol/L (3.5-5.1); SODIUM 139 mmol/L (135-144)
[2018-02-07] MEDS: ALBUTEROL/IPRATROPIUM (NEB) 3 ML AMP HHN ×2 (07:42→13:35)
[2018-02-07] MEDS: FUROSEMIDE 40 MG INJ IV (10:50)
[2018-02-07] MEDS: CALCIUM ACETATE 667 MG CAP PO ×3 (10:50→17:13)
[2018-02-07] MEDS: NIFEdipine (XL) 60 MG TAB PO (10:50)
[2018-02-07] MEDS ORDERED: HEPARIN 1000 UNITS/ML 10 ML INJ CATHETER (13:00)
[2018-02-07 14:26] LABS: HEMATOCRIT 25.6 % (42.0-52.0); HEMOGLOBIN 8.3 g/dl (14.0-18.0)
[2018-02-07] MEDS: EPOETIN 3000 UNITS/1 ML INJ (ESRD) SC (17:13)
[2018-02-08 05:53] LABS: ADD MAN DIFF? NO
[2018-02-08] MEDS: PANTOPRAZOLE (EC) 40 MG TAB PO (05:53)
[2018-02-08 05:59] LABS: BASOPHILS % 0.2 % (0.0-2.0); EOSINOPHILS # 0.3 10^3/ul (0.0-0.5); EOSINOPHILS % 4.2 % (0.0-7.0); HEMATOCRIT 23.9 % (42.0-52.0); HEMOGLOBIN 7.7 g/dl (14.0-18.0); LYMPHOCYTES % 16.7 % (15.0-51.0); MEAN CORPUSCULAR HEMOGLOBIN 29.5 pg (29.0-33.0); MEAN CORPUSCULAR HGB CONC 32.2 g/dl (32.0-37.0); MEAN CORPUSCULAR VOLUME 91.6 fl (82.0-101.0); MEAN PLATELET VOLUME 10.9 fl (7.4-10.4); MONOCYTE # 0.7 10^3/ul (0.3-0.9); MONOCYTES % 10.5 % (0.0-11.0); NEUTROPHIL # 4.2 10^3/ul (1.6-7.5); NEUTROPHILS % 67.4 % (39.0-77.0); PLATELET COUNT 171 10^3/UL (140-415); RED BLOOD COUNT 2.61 10^6/ul (4.70-6.10); RED CELL DISTRIBUTION WIDTH 13.1 % (11.5-14.5)
[2018-02-08 05:59] LABS: WHITE BLOOD COUNT 6.2 10^3/ul (4.8-10.8)
[2018-02-08 07:37] LABS: ANION GAP 9 (5-13); BLOOD UREA NITROGEN 51 mg/dl (7-20); CALCIUM 8.3 mg/dl (8.4-10.2); CARBON DIOXIDE 27 mmol/L (21-31); CHLORIDE 101 mmol/L (97-110); Estimated GFR 9 mL/min (>60); GLUCOSE 119 mg/dl (70-220); MAGNESIUM 1.9 mg/dl (1.7-2.5); PHOSPHORUS 4.3 mg/dl (2.5-4.9); POTASSIUM 3.8 mmol/L (3.5-5.1); SODIUM 137 mmol/L (135-144)
[2018-02-08] MEDS: CALCIUM ACETATE 667 MG CAP PO ×3 (08:00→18:04)
[2018-02-08 08:14] LABS: HEMATOCRIT 21.8 % (42.0-52.0); HEMOGLOBIN 7.1 g/dl (14.0-18.0)
[2018-02-08] MEDS: HEPARIN 1000 UNITS/ML 10 ML INJ CATHETER (10:34)
[2018-02-08] MEDS: NIFEdipine (XL) 60 MG TAB PO (11:49)
[2018-02-08] MEDS: FUROSEMIDE 40 MG INJ IV (12:04)
[2018-02-08] MEDS: SOD CHLORIDE 0.45% 1,000 ML IV (12:04)
[2018-02-09 00:11] LABS: ADD UMIC YES; UR ASCORBIC ACID NEGATIVE (NEGATIVE); UR BILIRUBIN (Dip) NEGATIVE (NEGATIVE); UR BLOOD (Dip) 1+ mg/dL (NEGATIVE); UR CLARITY CLEAR (CLEAR); UR COLOR STRAW (YELLOW); UR GLUCOSE (Dip) 1+ mg/dL (NEGATIVE); UR KETONES (Dip) NEGATIVE (NEGATIVE); UR LEUKOCYTE ESTERASE (Dip) NEGATIVE Leu/ul (NEGATIVE); UR NITRITE (Dip) NEGATIVE (NEGATIVE); UR RBC 13 /HPF (0-5); UR SPECIFIC GRAVITY (Dip) 1.009 (1.003-1.030); UR SQUAMOUS EPITHELIAL CELL FEW /HPF (FEW); UR TOTAL PROTEIN (Dip) 2+ mg/dl (NEGATIVE); UR UROBILINOGEN (Dip) NEGATIVE (NEGATIVE); UR WBC 12 /HPF (0-5)
[2018-02-09] MEDS: hydrALAzine 20 MG INJ IV ×2 (02:36→18:19)
[2018-02-09 04:07] LABS: OCCULT BLOOD STOOL POSITIVE (NEGATIVE)
[2018-02-09 05:05] LABS: ADD MAN DIFF? NO
[2018-02-09] MEDS: PANTOPRAZOLE (EC) 40 MG TAB PO (05:08)
[2018-02-09 05:11] LABS: RETICULOCYTE RBC 2.65
[2018-02-09 05:11] LABS: RETICULOCYTE COUNT # 0.076 X10^6 (0.020-0.110); RETICULOCYTE COUNT % 2.9 % (0.5-1.5)
[2018-02-09 05:12] LABS: BASOPHILS % 0.1 % (0.0-2.0); EOSINOPHILS # 0.3 10^3/ul (0.0-0.5); EOSINOPHILS % 3.4 % (0.0-7.0); HEMATOCRIT 24.7 % (42.0-52.0); LYMPHOCYTES # 1.1 10^3/ul (0.8-2.9); LYMPHOCYTES % 14.5 % (15.0-51.0); MEAN CORPUSCULAR HEMOGLOBIN 29.4 pg (29.0-33.0); MEAN CORPUSCULAR HGB CONC 32.4 g/dl (32.0-37.0); MEAN CORPUSCULAR VOLUME 90.8 fl (82.0-101.0); MEAN PLATELET VOLUME 10.7 fl (7.4-10.4); MONOCYTE # 0.7 10^3/ul (0.3-0.9); MONOCYTES % 8.7 % (0.0-11.0); NEUTROPHIL # 5.4 10^3/ul (1.6-7.5); NEUTROPHILS % 72.2 % (39.0-77.0); PLATELET COUNT 191 10^3/UL (140-415); RED BLOOD COUNT 2.72 10^6/ul (4.70-6.10); RED CELL DISTRIBUTION WIDTH 13.1 % (11.5-14.5)
[2018-02-09 05:12] LABS: WHITE BLOOD COUNT 7.5 10^3/ul (4.8-10.8)
[2018-02-09 05:27] LABS: LACTATE DEHYDROGENASE 483 IU/L (313-618)
[2018-02-09 05:35] LABS: MAGNESIUM 1.9 mg/dl (1.7-2.5)
[2018-02-09 05:39] LABS: ALANINE AMINOTRANSFERASE 15 IU/L (13-69); ALBUMIN 2.9 g/dl (3.3-4.9); ALBUMIN/GLOBULIN RATIO 0.74; ALKALINE PHOSPHATASE 249 IU/L (42-121); ANION GAP 6 (5-13); ASPARTATE AMINO TRANSFERASE 47 IU/L (15-46); BILIRUBIN,INDIRECT 0.3 mg/dl (0-1.1); BILIRUBIN,TOTAL 0.3 mg/dl (0.2-1.3); BLOOD UREA NITROGEN 36 mg/dl (7-20); CALCIUM 8.2 mg/dl (8.4-10.2); CARBON DIOXIDE 28 mmol/L (21-31); CHLORIDE 104 mmol/L (97-110); CREATININE 4.51 mg/dl (0.61-1.24); Estimated GFR 13 mL/min (>60); GLUCOSE 147 mg/dl (70-220); POTASSIUM 4.2 mmol/L (3.5-5.1); SODIUM 138 mmol/L (135-144); TOTAL PROTEIN 6.8 g/dl (6.1-8.1)
[2018-02-09 05:40] LABS: IRON 24 ug/dl (35-150)
[2018-02-09 05:49] LABS: % IRON SATURATION 12 % SAT (22-52); TOTAL IRON BINDING CAPACITY 196 ug/dl (241-421)
[2018-02-09] MEDS: ALBUTEROL/IPRATROPIUM (NEB) 3 ML AMP HHN ×3 (08:00→20:55)
[2018-02-09] MEDS: CALCIUM ACETATE 667 MG CAP PO ×3 (08:00→19:42)
[2018-02-09] MEDS: FUROSEMIDE 40 MG INJ IV (08:21)
[2018-02-09] MEDS: NIFEdipine (XL) 60 MG TAB PO (09:00)
[2018-02-09] MEDS: LABETALOL HCL 20MG INJ IV ×2 (09:55→21:34)
[2018-02-09] MEDS ORDERED: LIDOCAINE 2% (MDV) 20 ML INJ (12:30)
[2018-02-09] MEDS ORDERED: SOD CHLORIDE 0.9% 500 ML (12:30)
[2018-02-09] MEDS ORDERED: HEPARIN 1000 UNITS/ML 10 ML INJ (12:30)
[2018-02-09] MEDS ORDERED: MIDAZOLAM 1 MG/ML 2 ML INJ (12:31)
[2018-02-09] MEDS ORDERED: FENTAnyl 50 MCG/ML VIAL (12:31)
[2018-02-09] MEDS ORDERED: CEFAZOLIN 1 GM/50 ML (PMX) 100 ML IVPB (12:42)
[2018-02-09] MEDS: BISACODYL (EC) 5 MG TAB PO (16:00)
[2018-02-09 17:41] LABS: IMMEDIATE SPIN CROSSMATCH 1 2
[2018-02-09] MEDS: POLYETHYLENE GLYCOL 3350 119 GM POWDER PO (18:30)
[2018-02-09] MEDS: EPOETIN 4000 UNITS/1 ML INJ (ESRD) SC (19:39)
[2018-02-09] MEDS: HEPARIN 1000 UNITS/ML 10 ML INJ CATHETER (21:21)
[2018-02-09] MEDS: POLYETHYLENE GLYCOL 17 GM PACKET GTB (21:34)
[2018-02-09] MEDS: MAGNESIUM CITRATE 300 ML BTL PO (21:34)
[2018-02-10] MEDS: hydrALAzine 20 MG INJ IV (04:08)
[2018-02-10] MEDS: POLYETHYLENE GLYCOL 3350 119 GM POWDER PO (06:28)
[2018-02-10] MEDS: POLYETHYLENE GLYCOL 17 GM PACKET GTB (06:28)
[2018-02-10] MEDS: PANTOPRAZOLE (EC) 40 MG TAB PO (06:28)
[2018-02-10 06:45] LABS: ADD MAN DIFF? NO
[2018-02-10 06:58] LABS: WHITE BLOOD COUNT 7.3 10^3/ul (4.8-10.8)
[2018-02-10 06:58] LABS: BASOPHILS % 0.3 % (0.0-2.0); EOSINOPHILS # 0.2 10^3/ul (0.0-0.5); EOSINOPHILS % 2.2 % (0.0-7.0); HEMATOCRIT 28.9 % (42.0-52.0); HEMOGLOBIN 9.4 g/dl (14.0-18.0); LYMPHOCYTES # 0.9 10^3/ul (0.8-2.9); LYMPHOCYTES % 11.7 % (15.0-51.0); MEAN CORPUSCULAR HEMOGLOBIN 29.4 pg (29.0-33.0); MEAN CORPUSCULAR HGB CONC 32.5 g/dl (32.0-37.0); MEAN CORPUSCULAR VOLUME 90.3 fl (82.0-101.0); MEAN PLATELET VOLUME 10.9 fl (7.4-10.4); MONOCYTE # 0.7 10^3/ul (0.3-0.9); MONOCYTES % 9.6 % (0.0-11.0); NEUTROPHIL # 5.5 10^3/ul (1.6-7.5); NEUTROPHILS % 75.5 % (39.0-77.0); PLATELET COUNT 216 10^3/UL (140-415); RED CELL DISTRIBUTION WIDTH 13.4 % (11.5-14.5)
[2018-02-10 07:22] LABS: ANION GAP 11 (5-13); BLOOD UREA NITROGEN 21 mg/dl (7-20); CALCIUM 8.3 mg/dl (8.4-10.2); CARBON DIOXIDE 29 mmol/L (21-31); CHLORIDE 100 mmol/L (97-110); CREATININE 3.19 mg/dl (0.61-1.24); Estimated GFR 20 mL/min (>60); GLUCOSE 87 mg/dl (70-220); MAGNESIUM 1.9 mg/dl (1.7-2.5); PHOSPHORUS 3.5 mg/dl (2.5-4.9); POTASSIUM 4.3 mmol/L (3.5-5.1); SODIUM 140 mmol/L (135-144)
[2018-02-10] MEDS: ALBUTEROL/IPRATROPIUM (NEB) 3 ML AMP HHN ×3 (07:52→20:49)
[2018-02-10] MEDS: CALCIUM ACETATE 667 MG CAP PO ×3 (08:00→18:00)
[2018-02-10] MEDS: BISACODYL (EC) 5 MG TAB PO (09:16)
[2018-02-10] MEDS: NIFEdipine (XL) 60 MG TAB PO (09:17)
[2018-02-10] MEDS: FUROSEMIDE 40 MG TAB PO (09:18)
[2018-02-10] MEDS: morphine LIQ (10 MG/5 ML) CUP PO (09:22)
[2018-02-10 10:01] LABS: HAPTOGLOBIN 271 mg/dL (43-212)
[2018-02-10] MEDS: DEXTROSE 5%-0.45% NACL 1,000 ML IV (11:53)
[2018-02-10] MEDS ORDERED: LIDOCAINE 100 MG SYRINGE (16:30)
[2018-02-10] MEDS ORDERED: FENTAnyl 50 MCG/ML VIAL (16:30)
[2018-02-10] MEDS ORDERED: PROPOFOL 20 ML (16:30)
[2018-02-10] MEDS: ONDANSETRON 4 MG INJ IV (18:33)
[2018-02-11] MEDS: DEXTROSE 5%-0.45% NACL 1,000 ML IV (06:00)
[2018-02-11] MEDS: PANTOPRAZOLE (EC) 40 MG TAB PO ×2 (06:07→17:41)
[2018-02-11 07:20] LABS: ADD MAN DIFF? NO
[2018-02-11 07:35] LABS: BASOPHILS % 0.2 % (0.0-2.0); EOSINOPHILS # 0.2 10^3/ul (0.0-0.5); EOSINOPHILS % 3.1 % (0.0-7.0); HEMATOCRIT 26.6 % (42.0-52.0); HEMOGLOBIN 8.5 g/dl (14.0-18.0); LYMPHOCYTES # 0.8 10^3/ul (0.8-2.9); LYMPHOCYTES % 15.9 % (15.0-51.0); MEAN CORPUSCULAR HEMOGLOBIN 29.3 pg (29.0-33.0); MEAN CORPUSCULAR VOLUME 91.7 fl (82.0-101.0); MEAN PLATELET VOLUME 10.5 fl (7.4-10.4); MONOCYTE # 0.7 10^3/ul (0.3-0.9); MONOCYTES % 13.1 % (0.0-11.0); NEUTROPHIL # 3.4 10^3/ul (1.6-7.5); NEUTROPHILS % 66.9 % (39.0-77.0); PLATELET COUNT 211 10^3/UL (140-415); RED CELL DISTRIBUTION WIDTH 13.5 % (11.5-14.5)
[2018-02-11 07:35] LABS: WHITE BLOOD COUNT 5.1 10^3/ul (4.8-10.8)
[2018-02-11 07:56] LABS: MAGNESIUM 1.9 mg/dl (1.7-2.5)
[2018-02-11 08:01] LABS: ALANINE AMINOTRANSFERASE 14 IU/L (13-69); ALBUMIN 2.9 g/dl (3.3-4.9); ALBUMIN/GLOBULIN RATIO 0.72; ALKALINE PHOSPHATASE 206 IU/L (42-121); ANION GAP 10 (5-13); ASPARTATE AMINO TRANSFERASE 36 IU/L (15-46); BILIRUBIN,INDIRECT 0.1 mg/dl (0-1.1); BILIRUBIN,TOTAL 0.1 mg/dl (0.2-1.3); BLOOD UREA NITROGEN 28 mg/dl (7-20); CALCIUM 7.8 mg/dl (8.4-10.2); CARBON DIOXIDE 27 mmol/L (21-31); CHLORIDE 101 mmol/L (97-110); CREATININE 4.38 mg/dl (0.61-1.24); Estimated GFR 14 mL/min (>60); GLUCOSE 149 mg/dl (70-220); POTASSIUM 4.1 mmol/L (3.5-5.1); SODIUM 138 mmol/L (135-144); TOTAL PROTEIN 6.9 g/dl (6.1-8.1)
[2018-02-11] MEDS: FUROSEMIDE 40 MG TAB PO (08:28)
[2018-02-11] MEDS: CALCIUM ACETATE 667 MG CAP PO ×3 (08:29→17:41)
[2018-02-11] MEDS: ALBUTEROL/IPRATROPIUM (NEB) 3 ML AMP HHN ×3 (09:15→20:18)
[2018-02-11 10:27] LABS: HEMATOCRIT 27.7 % (42.0-52.0); HEMOGLOBIN 8.9 g/dl (14.0-18.0)
[2018-02-11] MEDS: HEPARIN 1000 UNITS/ML 10 ML INJ CATHETER (16:48)
[2018-02-11] MEDS: EPOETIN 4000 UNITS/1 ML INJ (ESRD) SC (17:45)
[2018-02-11] MEDS: morphine LIQ (10 MG/5 ML) CUP PO (17:46)
== END 2018-02-11 22:00 | DRG 668 ==
LOC: E/R 11:14 → 2NE 02-07 19:02 → 6WM 16:10
PROC: 0TBB8ZX Excision of Bladder, Via Natural or Artificial Opening Endoscopic, Diagnostic (ICD-10-PCS; principal; 2018-01-27 17:30)
PROC: 0WBF3ZX Excision of Abdominal Wall, Percutaneous Approach, Diagnostic (ICD-10-PCS; 2018-01-27 17:45)
PROC: 02H633Z Insertion of Infusion Device into Right Atrium, Percutaneous Approach (ICD-10-PCS; 2018-01-27 17:45)
PROC: 0JH63XZ Insertion of Tunneled Vascular Access Device into Chest Subcutaneous Tissue and Fascia, Percutaneous Approach (ICD-10-PCS; 2018-01-27 17:45)
PROC: 02H633Z Insertion of Infusion Device into Right Atrium, Percutaneous Approach (ICD-10-PCS; 2018-01-27 17:45)
PROC: 0DB68ZX Excision of Stomach, Via Natural or Artificial Opening Endoscopic, Diagnostic (ICD-10-PCS; 2018-01-27 17:45)
PROC: 0DBE8ZX Excision of Large Intestine, Via Natural or Artificial Opening Endoscopic, Diagnostic (ICD-10-PCS; 2018-01-27 17:45)
PROC: 5A1D70Z Performance of Urinary Filtration, Intermittent, Less than 6 Hours Per Day (ICD-10-PCS; 2018-01-27 17:45)
PROC: 5A1D70Z Performance of Urinary Filtration, Intermittent, Less than 6 Hours Per Day (ICD-10-PCS; 2018-01-27 17:45)
PROC: 5A1D70Z Performance of Urinary Filtration, Intermittent, Less than 6 Hours Per Day (ICD-10-PCS; 2018-01-27 17:45)
PROC: 5A1D70Z Performance of Urinary Filtration, Intermittent, Less than 6 Hours Per Day (ICD-10-PCS; 2018-01-27 17:45)
DX: N17.9 Acute kidney failure, unspecified (principal); K85.90 Acute pancreatitis without necrosis or infection, unspecified; E87.2 Acidosis; N39.0 Urinary tract infection, site not specified; N10 Acute pyelonephritis; N20.0 Calculus of kidney; S20.211A Contusion of right front wall of thorax, initial encounter; D35.02 Benign neoplasm of left adrenal gland; D41.4 Neoplasm of uncertain behavior of bladder; I12.9 Hypertensive chronic kidney disease with stage 1 through stage 4 chronic kidney disease, or unspecified chronic kidney disease; N18.9 Chronic kidney disease, unspecified; E87.5 Hyperkalemia; E11.22 Type 2 diabetes mellitus with diabetic chronic kidney disease; K57.30 Diverticulosis of large intestine without perforation or abscess without bleeding; D50.0 Iron deficiency anemia secondary to blood loss (chronic); K44.9 Diaphragmatic hernia without obstruction or gangrene; F17.210 Nicotine dependence, cigarettes, uncomplicated; Z90.49 Acquired absence of other specified parts of digestive tract
CPT/HCPCS: 36415; 36430; 71045; 74176; 74181; 74420; 76775; 77012; 78306; 80048; 80053; 80069; 81001; 81003; 82270; 82378; 82550; 82570; 82728; 82784; 82787; 82962; 83010; 83036; 83540; 83615; 83690; 83735; 84100; 84153; 84154; 84155; 84156; 84165; 84166; 84300; 85014; 85018; 85025; 85045; 85610; 85730; 86021; 86038; 86160; 86300; 86301; 86304; 86320; 86580; 86592; 86644; 86703; 86704; 86709; 86803; 86850; 86900; 86901; 86920; 87040; 87070; 87086; 87116; 87340; 88104; 88305; 88307; 88312; 88313; 89190; 90686; 90935; 93970; 94640; 94664; 97110; 97116; 97162; 97530; 99285-25; A9503